=== PATIENT | male | born 1970 | race Caucasian/White ===

== ENCOUNTER 2018-12-03 21:45 | Emergency (ER) | payer OTHER ==
[~2018-12-03] VITALS: Ht 193 cm; Wt 113.4 kg
[2018-12-03 22:31] LABS: BASO % 1 % (0-3); EOS # 0.6 x10^3/uL (0.0-0.7); EOS % 9 % (0-3); HEMATOCRIT 42.5 % (39.0-53.0); LYMPH # 1.7 x10^3/uL (1.0-4.8); LYMPH % 25 % (24-48); MEAN CORPUSCULAR HEMOGLOBIN 33 pg (25-35); MEAN CORPUSCULAR HGB CONC 35 g/dL (31-37); MEAN CORPUSCULAR VOLUME 93 fL (79-100); MONO # 0.5 x10^3/uL (0.0-1.1); MONO % 8 % (0-9); NEUT # 3.8 x10^3/uL (1.8-7.7); NEUT % 58 % (31-73); PLATELET COUNT 235 x10^3/uL (140-400); RED BLOOD COUNT 4.56 x10^6/uL (4.30-5.70); RED CELL DISTRIBUTION WIDTH 12.6 % (11.5-14.5); WHITE BLOOD COUNT 6.6 x10^3/uL (4.0-11.0)
[2018-12-03 22:41] LABS: CALCIUM 9.1 mg/dL (8.5-10.1); GFR 79.8; POTASSIUM 3.4 mmol/L (3.5-5.1)
[2018-12-03] MEDS ORDERED: ONDANSETRON PF 4 MG/2 ML VIAL. IV ONE (22:45)
[2018-12-03 22:47] LABS: ALBUMIN 4.4 g/dL (3.4-5.0); ALBUMIN/GLOBULIN RATIO 1.3 (1.0-1.7); TOTAL BILIRUBIN 0.7 mg/dL (0.2-1.0); TOTAL PROTEIN 7.8 g/dL (6.4-8.2)
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
[2018-12-03] MEDS ORDERED: IOHEXOL 300 MG/ML 100ML VIAL. IV ONE (23:00)
[2018-12-03] MEDS ORDERED: CONTRAST GIVEN. MC PRN (23:00)
--- NOTE | 2018-12-03 23:31 | RAD ---
CT head without contrast. CT cervical spine without contrast. PQRS statement: CT scans at this facility use dose reduction including either automated exposure control, iterative reconstructions, and /or weight based radiation dosing via mA and kV modification when appropriate to reduce radiation dose to as low as reasonably achievable. HISTORY: Fall, syncope, alcohol intoxication. TECHNIQUE: Noncontrast imaging of the head cervical spine multiplanar reconstructions. CT head findings: 1.5 cm in thickness left parietal occipital scalp hematoma. No intracranial hemorrhage, mass, hydrocephalus, extra-axial fluid collections or infarction. Orbits, mastoids and bones are unremarkable. Opacification ethmoid sinuses and fluid and mucosal thickening maxillary sinuses. IMPRESSION: No acute intracranial CT abnormality. Scalp hematoma. No skull fracture. Paranasal sinus disease could represent sinusitis. CT cervical spine findings: Craniocervical junction intact. Cervical vertebral body height and alignment intact. No fracture of the cervical spine. Lung apices and paraspinal tissues are unremarkable. Uncovertebral and facet spurring with neural foraminal stenoses. Probable disc bulges C5-C6 and C6-C7 may contribute to spinal canal stenosis. IMPRESSION: No acute osseous injury of the cervical spine. Electronically signed by: Jose Juan Carreon MD (12/03/2018 11:28 PM) [facility]
--- NOTE | 2018-12-03 23:39 | RAD ---
CT chest, abdomen and pelvis with contrast HISTORY: Fall, syncope, alcohol intoxication. TECHNIQUE: Helical CT imaging of the chest, abdomen and pelvis with 75 mL Omnipaque 300 intravenous contrast. PQRS statement: CT scans at this facility use dose reduction including either automated exposure control, iterative reconstructions, and /or weight based radiation dosing via mA and kV modification when appropriate to reduce radiation dose to as low as reasonably achievable. Chest findings: No mediastinal hematoma. No traumatic thoracic aortic injury. No pericardial fluid. Pulmonary vessels, aorta and esophagus are unremarkable. Heart size normal. No pneumothorax, pulmonary opacities or pleural effusions. Bones are unremarkable. Abdomen findings: Liver, gallbladder, kidneys, adrenal glands, pancreas and spleen are unremarkable. Appendix is negative. No obstruction or inflammatory changes in GI tract. No abdominal fluid or hematoma. Vessels are unremarkable. No adenopathy. Soft tissues and bones are unremarkable. Pelvis findings: No pelvic fluid or hematoma. Bladder, prostate, rectum and bones are unremarkable. IMPRESSION: No acute process in the chest, abdomen and pelvis. Exposure: One or more of the following individualized dose reduction techniques were utilized for this examination: 1. Automated exposure control 2. Adjustment of the mA and/or kV according to patient size 3. Use of iterative reconstruction technique Electronically signed by: Jose Juan Carreon MD (12/03/2018 11:36 PM) [facility]
[2018-12-04] MEDS ORDERED: LIDOCAINE 1%/EPI 1:100,000 20 ML VIAL. ONE (00:03)
[2018-12-04] MEDS ORDERED: IV NORMAL SALINE 1000ML BAG 1,000 ML IV ONE (00:30)
[2018-12-04] MEDS ORDERED: LIDOCAINE 1%/EPI 1:100,000 20 ML VIAL. INJ ONE (00:45)
[2018-12-04 01:06] VITALS: BP 135/76
--- NOTE | 2018-12-04 05:26 | RAD ---
Left tibia and fibula AP and lateral views: Reason for examination: Fall. Leg pain. Alcohol. There is some fragmentation at the tibial tuberosity which has a chronic corticated appearance. No acute fracture or dislocation is seen in the tibia or fibula. No abnormal periosteal reaction is seen. Joint spaces at the knee and ankle appear to be maintained. There is some calcific density in the soft tissues medially which could reflect foreign bodies. Recommend clinical correlation and follow-up. IMPRESSION: No acute bony abnormality at the left tibia or fibula. Calcific densities in the soft tissues medially adjacent to the tibia. Cannot exclude foreign bodies. Recommend clinical correlation. Electronically signed by: Pilar Montano MD (12/04/2018 5:23 AM) [facility]
== END 2018-12-04 01:10 | disposition home or self-care (01) ==
LOC: ER 21:45
DX: S01.01XA Laceration without foreign body of scalp, initial encounter (principal); S80.12XA Contusion of left lower leg, initial encounter; M25.511 Pain in right shoulder; R11.0 Nausea; M54.2 Cervicalgia; K21.9 Gastro-esophageal reflux disease without esophagitis; Z88.6 Allergy status to analgesic agent; W17.82XA Fall from (out of) grocery cart, initial encounter; Y93.89 Activity, other specified; Y92.89 Other specified places as the place of occurrence of the external cause; Y99.8 Other external cause status
CPT/HCPCS: 12001; 36415; 70450; 71260; 72125; 73590; 74177; 80053; 85025; 96374; 99285; J2405; J3490; J7030; Q9967; 12011

== ENCOUNTER 2018-12-13 10:44 | Emergency (ER) | payer OTHER ==
[~2018-12-13] VITALS: Ht 193 cm; Wt 113.4 kg
[2018-12-13 11:01] VITALS: BP 154/108
--- NOTE | 2018-12-13 11:26 | PHYS DOC ---
Past Medical History Past Medical History: GERD Past Surgical History: Other Additional Past Surgical Histo: Nasal surgery Alcohol Use: Occasionally Drug Use: None Adult General Chief Complaint Chief Complaint: SUTURE/STAPLE REMOVAL HPI HPI Patient is a 48 year old male who presents to the ED today for staple removal. Patient has had the carl for 10 days. Denies any issues with the wound healing. Review of Systems Review of Systems Constitutional: Denies fever or chills [] Musculoskeletal: Denies back pain or joint pain [] Integument: Visit for staple removal Neurologic: Denies headache, focal weakness or sensory changes [] All other systems were reviewed and found to be within normal limits, except as documented in this note. Allergies Allergies Allergies Coded Allergies Type Severity Reaction Last Updated Verified ibuprofen Allergy Severe Anaphylaxis 12/03/18 Yes aspirin Allergy Unknown 12/03/18 Yes Physical Exam Physical Exam Constitutional: Well developed, well nourished, no acute distress, non-toxic appearance. [] Skin: Warm, dry, to well approximated laceration sites noted on the scalp, with 7 carl total. No signs of infection. Back: No tenderness, no CVA tenderness. [] Extremities: No tenderness, no cyanosis, no clubbing, ROM intact, no edema. [] Neurologic: Alert and oriented X 3, normal motor function, normal sensory function, no focal deficits noted. [] Psychologic: Affect normal, judgement normal, mood normal. [] Current Patient Data Vital Signs Vital Signs Date Time Temp Pulse Resp B/P (MAP) Pulse Ox O2 Delivery O2 Flow Rate FiO2 12/13/18 11:01 98.8 66 16 154/108 (123) 95 Room Air 98.8 EKG EKG [] Radiology/Procedures Radiology/Procedures [] Course & Med Decision Making Course & Med Decision Making Pertinent Labs and Imaging studies reviewed. (See chart for details) Seven carl were removed from patient's laceration site by me. Laceration site is well approximated with no signs of infection. Discharged to home. Dragon Disclaimer Dragon Disclaimer This electronic medical record was generated, in whole or in part, using a voice recognition dictation system. Departure Departure Impression: Primary Impression: Encounter for staple removal Disposition: HOME, SELF-CARE Condition: STABLE Referrals: UNKNOWN PCP NAME (PCP) follow up with your doctor as needed Patient Instructions: Staple Removal, Care After Additional Instructions: We removed carl from your lacerations. Keep the areas clean and dry. Follow- up with your doctor as needed KAT GUTIERREZ APRN Dec 13, 2018 11:25
== END 2018-12-13 11:30 | disposition home or self-care (01) ==
LOC: ER 10:44
DX: S01.01XD Laceration without foreign body of scalp, subsequent encounter (principal); K21.9 Gastro-esophageal reflux disease without esophagitis; Z88.6 Allergy status to analgesic agent; X58.XXXD Exposure to other specified factors, subsequent encounter
CPT/HCPCS: 99281